=== PATIENT | male | born 1980 | race Caucasian/White ===

== ENCOUNTER → 2017-08-20 | Emergency (ER) | payer OTHER ==
[~2017-08-20] VITALS: Ht 172.7 cm; Wt 74.8 kg
== END | disposition home or self-care (01) ==
LOC: ER 18:10
DX: N43.2 Other hydrocele (principal); N50.812 Left testicular pain; N50.811 Right testicular pain

== ENCOUNTER 2018-09-23 15:00 | Emergency (ER) | payer OTHER ==
[~2018-09-23] VITALS: Ht 172.7 cm; Wt 72.6 kg
== END 2018-09-23 18:34 | disposition home or self-care (01) ==
LOC: ER 15:00
DX: N43.2 Other hydrocele (principal); N50.811 Right testicular pain

== ENCOUNTER 2019-12-08 13:58 | Emergency (ER) | payer OTHER ==
[~2019-12-08] VITALS: Ht 170.2 cm; Wt 74.8 kg
== END 2019-12-08 15:48 | disposition home or self-care (01) ==
LOC: ER 13:58
DX: J03.90 Acute tonsillitis, unspecified (principal)